=== PATIENT | female | born 1955 | race Caucasian/White ===

== ENCOUNTER 2021-11-11 14:48 | Emergency (ER) | payer MEDICARE, SELFPAY ==
[2021-11-11 15:00] VITALS: BP 120/55; PULSE 75; RESP 14; TEMP 37.1; O2SAT 99
[2021-11-11 15:12] VITALS: BP 120/55; PULSE 75; RESP 14; TEMP 37.1; O2SAT 99
--- NOTE | 2021-11-11 15:57 | ED.SKABFB ---
HPI - Skin/Abscess/Foreign Bdy General Chief complaint: Skin/Abscess/Foreign Body Stated complaint: Injury to skin on right arm Time Seen by Provider: 11/11/21 15:10 Source: patient Mode of arrival: ambulatory Limitations: no limitations History of Present Illness HPI narrative: 66 year old fem[facility]ep[facility] with complaints of lifting on a file cabinet yesterday and slipped and hit the right proximal inner forearm on cabinet edge causing skin tear to skin. Patient reports that she cleansed wound with peroxide and applied antibacterial ointment and bandage to wound.. Patient states that her tetanus is up to date.Skin tear 5cm X3.5cm right inner forearm with part of top layer folded over but provider able to get skin unfolded using antibacterial ointment and cotton tip applicator so top of skin layer is over wound bed, no acute bleeding is tender to palpation. MD complaint: other (skin tear) Onset (ago): day(s) (yesterday) Severity scale (1-10): 5 Treatments prior to arrival: bandages and other (cleansed wound and applied neosporin ointment) Related Data Home Medications Medication Instructions Recorded Confirmed cyclobenzaprine 5 mg tablet 5 mg PO HS PRN Muscle Spasm 11/11/21 11/11/21 fluticasone propionate 50 2 spray intranasal DAILY 11/11/21 11/11/21 mcg/actuation nasal spray,suspension meloxicam 15 mg tablet 15 mg PO DAILY 11/11/21 11/11/21 Allergies Allergy/AdvReac Type Severity Reaction Status Date / Time Sulfa (Sulfonamide Allergy Intermediate Hives / Verified 11/11/21 15:10 Antibiotics) Red Face Review of Systems Review of Systems: CONSTITUTIONAL: Denies fever, chills, or sweats. EYES: Denies visual changes, redness, or discharge. ENT: Denies rhinorrhea, congestion, sore throat, or otalgia. CARDIOVASCULAR: Denies chest pain, palpitations, or edema. RESPIRATORY: Denies cough or dyspnea. GASTROINTESTINAL: Denies abdominal pain, nausea, vomiting, or diarrhea. GENITOURINARY: Denies dysuria or hematuria. SKIN: Denies rash or itching.Positive for skin tear to right proximal inner forearm MUSCULOSKELETAL: Denies back pain, joint pain, or myalgia. NEUROLOGIC: Denies headache, numbness, or weakness. PSYCHIATRIC: Denies anxiety or depression. All systems reviewed & are unremarkable except as noted in HPI and below PMFSH Past Medical History Medical History (Updated 11/14/21 @ 20:03 by Melanie Win NP) COPD (chronic obstructive pulmonary disease) Environmental allergies Fibromyalgia Neuropathy Surgical History Surgical History (Updated 11/14/21 @ 20:02 by Melanie Win NP) History of section S/P bronchoscopy Social History Social History (Updated 11/14/21 @ 20:01 by Melanie Win NP) Smoking packs per day: 0.75 Smoking cigarettes per day: 15.0 Years smoked: 35 Smoking pack-years: 26.25 Smoking status: Former smoker Tobacco type: cigarettes Additional smoking assessment comments: Quit 09/2021 Alcohol intake: current Alcohol use details: rarw Substance use type: does not use Gender identity (if verbalized by the patient): Female Comments At time of signature, agree with nursing past medical, surgical, social and family history. There is no relevant family history pertinent to the presenting complaint Exam Narrative: ENERAL: Well-appearing, well-nourished, and in no acute distress. HEAD: Normocephalic, atraumatic. EYES: PERRLA and EOMI. ENT: Nares clear, no rhinorrhea or epistaxis. Mucous membranes moist.TM's normal with good light reflex, throat pink with no lesions or swelling NECK: Supple.no lymphadenopathy CHEST: Clear to auscultation. No respiratory distress.SAO2 99% on room air HEART: Regular rate and rhythm. No murmur heard. Normal peripheral pulses. ABDOMEN: Soft, nontender, nondistended, normal active bowel sounds. EXTREMITIES: Normal range of motion. No edema. SKIN: Warm, dry, no rash.5cm X 3,5 cm skin tear to right proximal inn
== END 2021-11-11 16:16 | disposition home or self-care (01) ==
PROVIDERS: Emergency Provider Registered Nurse
DX: S51.811A Laceration without foreign body of right forearm, initial encounter (principal); W22.8XXA Striking against or struck by other objects, initial encounter; J44.9 Chronic obstructive pulmonary disease, unspecified; M79.7 Fibromyalgia; G62.9 Polyneuropathy, unspecified; Z87.891 Personal history of nicotine dependence
CPT/HCPCS: 99213; G0463

== ENCOUNTER → 2023-11-30 11:37 | Outpatient (REF) | payer MEDICARE, SELFPAY | LOC: ANHLAB 11:37 | PROVIDERS: PCP Hospitalist; Visit Provider Plastic Surgery | DX: L98.8 Other specified disorders of the skin and subcutaneous tissue (principal); L82.1 Other seborrheic keratosis; D48.5 Neoplasm of uncertain behavior of skin | CPT/HCPCS: 88305 ==